=== PATIENT | female | born 1950 | race Two or more races ===

== ENCOUNTER → 2024-05-14 | Outpatient (CLI) | payer MEDICARE, MEDICAID, SELFPAY ==
[2024-05-14 13:09] LABS: Basophils % (Auto) 0 % (0-2.5); Eosinophils # (Auto) 0.2 Thou/mm3 (0.0-0.5); Eosinophils % (Auto) 3 % (0-10); Hematocrit 34.2 % (36.0-46.0); Hemoglobin 11.3 g/dL (12.0-16.0); Immature Granulocytes % (Auto) 0 % (0-0); Immature Granulocytes Auto 0.03 Thou/mm3 (0.00-0.00); Lymphocytes # (Auto) 1.6 Thou/mm3 (1.0-4.8); Lymphocytes % (Auto) 23 % (10-50); Mean Corpuscular Hemoglobin 28.6 pg (25.0-35.0); Mean Corpuscular Volume 87 fL (80-100); Monocytes # (Auto) 0.9 Thou/mm3 (0.0-0.8); Monocytes % (Auto) 13 % (0-12); Neutrophils # (Auto) 4.2 Thou/mm3 (1.8-7.7); Neutrophils % (Auto) 61 % (37-80); Nucleated Red Blood Cell % 0 /100 WBC (0); Platelet Count 144 Thou/mm3 (140-440); RDW Standard Deviation 50.2 fL (36.4-46.3); Red Blood Count 3.95 Miln/mm3 (4.00-5.20); White Blood Count 6.9 Thou/mm3 (3.6-11.0)
[2024-05-14 13:30] LABS: Alanine Aminotransferase 50 U/L (10-49); Albumin, Serum 3.8 gm/dL (3.4-4.8); Albumin/Globulin Ratio 1.2 (1.2-2.2); Alkaline Phosphatase 158 U/L (46-116); Anion Gap 6 (7-16); Aspartate Amino Transferase 84 U/L (0-34); BUN/Creatinine Ratio 19 Ratio (12-20); Bilirubin,Total 1.5 mg/dL (0.3-1.2); Blood Urea Nitrogen 15 mg/dL (9-23); Calcium 9.6 mg/dL (8.3-10.6); Calcium (Corrected) 9.8 mg/dL (8.5-10.1); Carbon Dioxide 26.1 mMol/L (20.0-31.0); Carcinoembryonic Antigen 5.5 ng/mL (0.0-5.0); Chloride 109 mMol/L (98-107); Creatinine (Component) 0.8 mg/dL (0.6-1.3); Globulin 3.2 gm/dL (2.3-3.5); Glucose 93 mg/dL (74-106); Osmolality,Calculated 282 (275-295); Potassium 4.4 mMol/L (3.4-5.1); Sodium 141 mMol/L (136-145); eGFR > 60 See Note
== END | disposition home or self-care (01) ==
LOC: COPL 12:02
PROVIDERS: PCP Family Medicine; Referring Provider Internal Medicine; Visit Provider Internal Medicine
DX: C18.3 Malignant neoplasm of hepatic flexure (principal)
CPT/HCPCS: 36415; 80053; 82378; 85025

== ENCOUNTER → 2024-05-23 | Outpatient (CLI) | payer MEDICARE, MEDICAID, SELFPAY ==
[2024-05-23 08:33] LABS: Basophils % (Auto) 1 % (0-2.5); Eosinophils # (Auto) 0.2 Thou/mm3 (0.0-0.5); Eosinophils % (Auto) 3 % (0-10); Hematocrit 34.3 % (36.0-46.0); Hemoglobin 11.4 g/dL (12.0-16.0); Immature Granulocytes % (Auto) 0 % (0-0); Immature Granulocytes Auto 0.01 Thou/mm3 (0.00-0.00); Lymphocytes # (Auto) 1.6 Thou/mm3 (1.0-4.8); Lymphocytes % (Auto) 24 % (10-50); Mean Corpuscular HGB Conc 33.2 g/dl (31.0-37.0); Mean Corpuscular Hemoglobin 29.2 pg (25.0-35.0); Mean Corpuscular Volume 88 fL (80-100); Monocytes # (Auto) 0.8 Thou/mm3 (0.0-0.8); Monocytes % (Auto) 11 % (0-12); Neutrophils % (Auto) 60 % (37-80); Nucleated Red Blood Cell % 0 /100 WBC (0); Platelet Count 154 Thou/mm3 (140-440); RDW Standard Deviation 51.1 fL (36.4-46.3); White Blood Count 6.6 Thou/mm3 (3.6-11.0)
[2024-05-23 08:43] LABS: Glucose Estimated Average 105 mg/dL (80-131); Hemoglobin A1C 5.3 % Hgb (4.8-6.0)
[2024-05-23 09:06] LABS: Alanine Aminotransferase 35 U/L (10-49); Albumin, Serum 3.7 gm/dL (3.4-4.8); Albumin/Globulin Ratio 1.2 (1.2-2.2); Alkaline Phosphatase 158 U/L (46-116); Anion Gap 8 (7-16); Aspartate Amino Transferase 55 U/L (0-34); BUN/Creatinine Ratio 15 Ratio (12-20); Bilirubin,Total 1.3 mg/dL (0.3-1.2); Blood Urea Nitrogen 12 mg/dL (9-23); Calcium 9.4 mg/dL (8.3-10.6); Calcium (Corrected) 9.6 mg/dL (8.5-10.1); Carbon Dioxide 26.6 mMol/L (20.0-31.0); Cardiac Risk Estimate 1.8 RATIO (3.7-5.6); Chloride 107 mMol/L (98-107); Cholesterol 149 mg/dL (132-200); Creatinine (Component) 0.8 mg/dL (0.6-1.3); Globulin 3.1 gm/dL (2.3-3.5); Glucose 86 mg/dL (74-106); HDL Cholesterol 81 mg/dL (40-60); LDL Cholesterol,Calculated 46 mg/dL (0-130); Osmolality,Calculated 281 (275-295); Potassium 4.7 mMol/L (3.4-5.1); Sodium 142 mMol/L (136-145); Total Protein 6.8 gm/dL (5.7-8.2); Triglycerides 109 mg/dL (30-150); eGFR > 60 See Note
== END | disposition home or self-care (01) ==
LOC: COPL 07:46
PROVIDERS: PCP Family Medicine; Referring Provider Family Medicine; Visit Provider Family Medicine
DX: Z00.00 Encounter for general adult medical examination without abnormal findings (principal); I10 Essential (primary) hypertension; D50.8 Other iron deficiency anemias; E78.2 Mixed hyperlipidemia; E11.9 Type 2 diabetes mellitus without complications
CPT/HCPCS: 36415; 80053; 80061; 82043; 82570; 83036; 85025

== ENCOUNTER → 2024-06-17 | Outpatient (CLI) | payer MEDICARE, MEDICAID, SELFPAY ==
[2024-06-17 13:41] LABS: Carcinoembryonic Antigen 6.7 ng/mL (0.0-5.0)
[2024-06-17 13:43] LABS: Alanine Aminotransferase 38 U/L (10-49); Albumin, Serum 3.7 gm/dL (3.4-4.8); Albumin/Globulin Ratio 1.2 (1.2-2.2); Alkaline Phosphatase 136 U/L (46-116); Anion Gap 8 (7-16); Aspartate Amino Transferase 53 U/L (0-34); BUN/Creatinine Ratio 14 Ratio (12-20); Bilirubin,Total 1.6 mg/dL (0.3-1.2); Blood Urea Nitrogen 13 mg/dL (9-23); Calcium 9.1 mg/dL (8.3-10.6); Calcium (Corrected) 9.3 mg/dL (8.5-10.1); Carbon Dioxide 25.6 mMol/L (20.0-31.0); Chloride 108 mMol/L (98-107); Creatinine (Component) 0.9 mg/dL (0.6-1.3); Globulin 3.1 gm/dL (2.3-3.5); Glucose 126 mg/dL (74-106); Osmolality,Calculated 285 (275-295); Sodium 142 mMol/L (136-145); Total Protein 6.8 gm/dL (5.7-8.2); eGFR > 60 See Note
== END | disposition home or self-care (01) ==
PROVIDERS: PCP Family Medicine; Referring Provider Nurse Practitioner; Visit Provider Nurse Practitioner
DX: C18.3 Malignant neoplasm of hepatic flexure (principal)
CPT/HCPCS: 36415; 80053; 82378

== ENCOUNTER → 2024-08-14 | Outpatient (CLI) | payer MEDICARE, MEDICAID, SELFPAY ==
[2024-08-14 14:35] LABS: Collection Type, Urine Clean Catch; RBC,Urine 0 /hpf (0-3); Squamous Epithelial Cell,Urine 0 /hpf (0-5); WBC,Urine 0 /hpf (0-5)
[2024-08-14 15:35] LABS: Bilirubin,Urine Negative (Negative); Blood,Urine Negative (Negative); Clarity,Urine Clear (Clear/Hazy); Color,Urine Lt-Yellow (Lt Yel-Yel); Glucose, Urine Negative (Negative); Ketones,Urine Negative (Negative); Leukocyte Esterase,Urine Negative (Negative); Nitrite,Urine Negative (Negative); Protein,Urine Negative (Neg - Trace); Specific Gravity,Urine 1.012 (1.001-1.035); Urobilinogen,Urine Negative mg/dL (0.0-1.0)
== END | disposition home or self-care (01) ==
LOC: SLDO 14:28
PROVIDERS: PCP Registered Nurse; Referring Provider Registered Nurse; Visit Provider Registered Nurse
DX: R31.9 Hematuria, unspecified (principal)
CPT/HCPCS: 81001; 87086

== ENCOUNTER → 2025-02-12 | Outpatient (CLI) | payer MEDICARE, MEDICAID, SELFPAY ==
--- NOTE | 2025-02-12 08:12 | XR_ITS ---
Examination: Wrist, left 3 views Technique: Wrist AP, oblique, lateral 3 views Date and time of exam: February 12, 2025, 0834 hours INDICATIONS: Left hand pain post surgery 2 months ago. FINDINGS: Severe osteopenia Mild narrowing radiocarpal and intercarpal joints as follows first carpometacarpal joint No fracture No avascular necrosis IMPRESSION: Severe osteopenia Mild narrowing of radiocarpal, intercarpal, first carpometacarpal joints
--- NOTE | 2025-02-12 08:12 | XR_ITS ---
Examination: Hand, left 3 views Technique: Hand AP, oblique, lateral 3 views Date and time of exam: February 12, 2025, 0834 hours INDICATIONS: Left hand wrist surgery 2 months ago, pain FINDINGS: Severe osteopenia No acute fracture Mild arthritic change interphalangeal joints and first carpometacarpal joint No foreign body IMPRESSION: Severe osteopenia No acute fracture Mild arthritic change
== END | disposition home or self-care (01) ==
PROVIDERS: PCP Family Medicine; Referring Provider Family Medicine; Visit Provider Family Medicine
DX: M85.842 Other specified disorders of bone density and structure, left hand (principal); M13.842 Other specified arthritis, left hand; M85.88 Other specified disorders of bone density and structure, other site; M25.832 Other specified joint disorders, left wrist
CPT/HCPCS: 73110; 73130

== ENCOUNTER → 2025-02-23 | Outpatient (CLI) | payer MEDICARE, MEDICAID, SELFPAY ==
[2025-02-23 14:25] LABS: Collection Type, Urine Clean Catch
[2025-02-23 14:54] LABS: Bilirubin,Urine Negative (Negative); Blood,Urine Negative (Negative); Clarity,Urine Clear (Clear/Hazy); Color,Urine Colorless (Lt Yel-Yel); Culture Indicated,Urine Not Indicated; Glucose, Urine Negative (Negative); Hyaline Casts,Urine < 1 /hpf (0-1); Ketones,Urine Negative (Negative); Leukocyte Esterase,Urine Negative (Negative); Nitrite,Urine Negative (Negative); PH,Urine 5.5 (5.0-7.0); Protein,Urine Negative (Neg - Trace); RBC,Urine 1 /hpf (0-3); Specific Gravity,Urine 1.005 (1.001-1.035); Squamous Epithelial Cell,Urine 1 /hpf (0-5); Urobilinogen,Urine Negative mg/dL (0.0-1.0); WBC,Urine < 1 /hpf (0-5)
== END | disposition home or self-care (01) ==
LOC: SLDO 14:17
PROVIDERS: Referring Provider Internal Medicine; Visit Provider Internal Medicine
DX: R30.0 Dysuria (principal)
CPT/HCPCS: 81001

== ENCOUNTER → 2025-03-05 | Outpatient (CLI) | payer MEDICARE, MEDICAID, SELFPAY ==
[2025-03-05 12:43] LABS: Alanine Aminotransferase 27 U/L (10-49); Albumin, Serum 3.1 gm/dL (3.4-4.8); Albumin/Globulin Ratio 1.0 (1.2-2.2); Alkaline Phosphatase 153 U/L (46-116); Anion Gap 12 (7-16); Aspartate Amino Transferase 47 U/L (0-34); BUN/Creatinine Ratio 13 Ratio (12-20); Bilirubin,Total 1.4 mg/dL (0.3-1.2); Blood Urea Nitrogen 10 mg/dL (9-23); Calcium 6.9 mg/dL (8.3-10.6); Calcium (Corrected) 7.6 mg/dL (8.5-10.1); Carbon Dioxide 21.6 mMol/L (20.0-31.0); Chloride 112 mMol/L (98-107); Creatinine (Component) 0.8 mg/dL (0.6-1.3); Globulin 3.2 gm/dL (2.3-3.5); Glucose 138 mg/dL (74-106); Osmolality,Calculated 291 (275-295); Potassium 3.3 mMol/L (3.4-5.1); Sodium 146 mMol/L (136-145); Total Protein 6.3 gm/dL (5.7-8.2); eGFR > 60 See Note
[2025-03-06 11:04] LABS: Campylobacter PCR Negative (Negative); Salmonella Species PCR Negative (Negative); Shiga Toxin PCR Negative (Negative); Shigella Species PCR Negative (Negative)
== END | disposition home or self-care (01) ==
LOC: COPL 10:55
PROVIDERS: PCP Family Medicine; Referring Provider Family Medicine; Visit Provider Family Medicine
DX: R19.7 Diarrhea, unspecified (principal)
CPT/HCPCS: 36415; 80053

== ENCOUNTER → 2025-03-17 | Outpatient (CLI) | payer MEDICARE, MEDICAID, SELFPAY ==
[2025-03-17 16:09] LABS: Basophils # (Auto) 0.0 Thou/mm3 (0.0-0.2); Basophils % (Auto) 1 % (0-2.5); Eosinophils # (Auto) 0.3 Thou/mm3 (0.0-0.5); Eosinophils % (Auto) 3 % (0-10); Hematocrit 28.6 % (36.0-46.0); Hemoglobin 9.1 g/dL (12.0-16.0); Immature Granulocytes Auto 0.04 Thou/mm3 (0.00-0.00); Lymphocytes # (Auto) 1.5 Thou/mm3 (1.0-4.8); Lymphocytes % (Auto) 18 % (10-50); Mean Corpuscular HGB Conc 31.8 g/dl (31.0-37.0); Mean Corpuscular Hemoglobin 27.1 pg (25.0-35.0); Mean Corpuscular Volume 85 fL (80-100); Monocytes # (Auto) 0.9 Thou/mm3 (0.0-0.8); Monocytes % (Auto) 11 % (0-12); Neutrophils # (Auto) 5.7 Thou/mm3 (1.8-7.7); Neutrophils % (Auto) 67 % (37-80); Nucleated Red Blood Cell # 0.00 Thou/mm3 (0.00-0.00); Nucleated Red Blood Cell % 0 /100 WBC (0); Platelet Count 163 Thou/mm3 (140-440); RDW Standard Deviation 57.2 fL (36.4-46.3); Red Blood Count 3.36 Miln/mm3 (4.00-5.20); White Blood Count 8.5 Thou/mm3 (3.6-11.0)
[2025-03-17 16:17] LABS: Alanine Aminotransferase 30 U/L (10-49); Albumin, Serum 3.0 gm/dL (3.4-4.8); Albumin/Globulin Ratio 0.8 (1.2-2.2); Alkaline Phosphatase 157 U/L (46-116); Anion Gap 11 (7-16); Aspartate Amino Transferase 65 U/L (0-34); BUN/Creatinine Ratio 9 Ratio (12-20); Bilirubin,Total 1.3 mg/dL (0.3-1.2); Blood Urea Nitrogen 7 mg/dL (9-23); Carbon Dioxide 21.3 mMol/L (20.0-31.0); Chloride 113 mMol/L (98-107); Creatinine (Component) 0.8 mg/dL (0.6-1.3); Globulin 3.6 gm/dL (2.3-3.5); Glucose 146 mg/dL (74-106); Osmolality,Calculated 289 (275-295); Potassium 3.6 mMol/L (3.4-5.1); Sodium 145 mMol/L (136-145); Total Protein 6.6 gm/dL (5.7-8.2); eGFR > 60 See Note
[2025-03-17 16:24] LABS: Calcium 7.0 mg/dL (8.3-10.6); Calcium (Corrected) 7.8 mg/dL (8.5-10.1)
== END | disposition home or self-care (01) ==
LOC: COPL 14:02
PROVIDERS: PCP Family Medicine; Referring Provider Family Medicine; Visit Provider Family Medicine
DX: R19.7 Diarrhea, unspecified (principal); R11.0 Nausea
CPT/HCPCS: 36415; 80053; 85025